=== PATIENT | female | born 1955 | race Caucasian/White ===

== ENCOUNTER 2019-01-26 21:16 | Observation (INO) | payer OTHER ==
[2019-01-26] MEDS ORDERED: NITROGLYCERIN OINT 1 INCH/GM PACKET TOPICAL STA (21:20)
--- NOTE | 2019-01-26 21:23 | ED ---
Chest Pain HPI - General Stated Complaint: Chest Pain Time Seen by Provider: 01/26/19 21:16 Source: patient, EMS, RN notes reviewed Mode of arrival: EMS - History of Present Illness Initial Comments: This is a 63-year-old female history of depression but no prior history of heart or lung disease however she is a smoker who had the onset about 45 minutes prior to arrival of retrosternal chest pain. She states it was 10/10 severity dull achy-type pain nonradiating. The patient was given aspirin nitroglycerin and Zofran due to nausea. She also states she was short of breath he does state the pain is now about 6/10 at did get better after the medication was given. No other modifying factors the 12-lead cement in by paramedicsno definite EKG changes. MD Complaint: chest pain - Related Data Allergies Allergy/AdvReac Type Severity Reaction Status Date / Time acetaminophen [From Vicodin] AdvReac Nausea Verified 01/26/19 21:40 hydrocodone [From Vicodin] AdvReac Nausea Verified 01/26/19 21:40 Review of Systems ROS Statement: Those systems with pertinent positive or pertinent negative responses have been documented in the HPI. ROS Other: All systems not noted in ROS Statement are negative. EKG Findings - EKG Results: EKG: interpreted by CHRISTINA, sinus rhythm (Sinus rhythm rate is 76. Interval 180 QRS duration 94 QT since QTC 424/477 left exodeviation pulmonary disease pattern incomplete right bundle-branch block and minimal voltage criteria for LVH and nonspecific T-wave configuration) General Exam - General Exam Comments Initial Comments: Is a well-developed well-nourished awake alert oriented 3 female General appearance: alert, in no apparent distress Head exam: Present: atraumatic, normocephalic, normal inspection Eye exam: Present: normal appearance, PERRL, EOMI. Absent: scleral icterus, conjunctival injection, periorbital swelling ENT exam: Present: normal exam, mucous membranes moist Neck exam: Present: normal inspection, full ROM, other. Absent: tenderness, meningismus, lymphadenopathy Respiratory exam: Present: normal lung sounds bilaterally. Absent: respiratory distress, wheezes, rales, rhonchi, stridor, chest wall tenderness Cardiovascular Exam: Present: regular rate, normal rhythm, normal heart sounds. Absent: systolic murmur, diastolic murmur, rubs, gallop, clicks GI/Abdominal exam: Present: soft, normal bowel sounds. Absent: distended, tenderness, guarding, rebound, rigid Extremities exam: Present: normal inspection, full ROM, normal capillary refill. Absent: tenderness, pedal edema, joint swelling, calf tenderness Back exam: Present: normal inspection Neurological exam: Present: alert, oriented X3, CN II-XII intact Psychiatric exam: Present: normal affect, normal mood Skin exam: Present: warm, dry, intact, normal color. Absent: rash Course Vital Signs 01/26/19 01/26/19 21:18 22:47 Temperature 97.6 F 98.2 F Pulse Rate 80 81 Respiratory 18 18 Rate Blood Pressure 137/72 138/76 O2 Sat by Pulse 96 97 Oximetry - Reevaluation(s) Reevaluation #1: 01/26/19 23:12 She did get more relief after nitro paste was instituted. Procedures - Smoking Cessation Time Spent Discussing Smoking Cessation w/Patient (Minutes): 3 Patient Acknowledges Need for Cessation: Yes Chest Pain MDM - MDM Did review the imaging no acute findings. Patient did get resolution of her pain after the medications were instituted. The presentation is consistent with unstable angina new-onset she will be admitted with cardiology consultation. Case was discussed with Dr. Stanton patient smokes about one pack is here yesterday. She does not believe she will go through withdrawals. She was advised she could request a nicotine patch. Critical Care Time Critical Care Time: Yes Critical Care Time: 31 minutes of critical care time includes initial presentation with history physical labs x-rays several reevaluation the patient response to therapy discuss with the main physician admission orders documentation the above this also did include discussion with the EMS crew brought the patient. Disposition Clinical Impression: Unstable angina pectoris, Chest pain, Smoker Disposition: ADMITTED IP TO THIS [facility] Condition: Fair Referrals: None,Stated [Primary Care Provider] - 1-2 days
[2019-01-26 21:47] LABS: Basophils # (A) 0.1 k/uL (0-0.2); Basophils % (A) 1 %; Eosinophils # (A) 0.2 k/uL (0-0.7); Eosinophils % (A) 2 %; HCT 39.7 % (34.0-46.0); HGB 13.1 gm/dL (11.4-16.0); Lymphocytes # (A) 1.6 k/uL (1.0-4.8); Lymphocytes % (A) 19 %; MCH 26.2 pg (25.0-35.0); MCHC 33.1 g/dL (31.0-37.0); MCV 79.1 fL (80.0-100.0); Mean Platelet Volume 6.7; Monocytes # (A) 0.4 k/uL (0-1.0); Monocytes % (A) 4 %; Neutrophils # (A) 6.3 k/uL (1.3-7.7); Neutrophils % (A) 74 %; Platelet Count 250 k/uL (150-450); RBC 5.02 m/uL (3.80-5.40); RDW 14.6 % (11.5-15.5); WBC 8.6 k/uL (3.8-10.6)
[2019-01-26 21:55] LABS: ALT 35 U/L (9-52); AST 51 U/L (14-36); African American GFR (CKD) >90 (>60 ml/min/1.73 sqM); Albumin 3.6 g/dL (3.5-5.0); Alkaline Phosphatase 130 U/L (38-126); Anion Gap 6 mmol/L; Blood Urea Nitrogen 9 mg/dL (7-17); Calcium 8.7 mg/dL (8.4-10.2); Carbon Dioxide 27 mmol/L (22-30); Chloride 108 mmol/L (98-107); Creatine Kinase 59 U/L (30-135); Glucose 119 mg/dL (74-99); Magnesium 2.1 mg/dL (1.6-2.3); Non-African American GFR(CKD) 82 (>60 ml/min/1.73 sqM); Potassium 3.3 mmol/L (3.5-5.1); Sodium 141 mmol/L (137-145); Total Bilirubin 0.4 mg/dL (0.2-1.3); Total Protein 6.1 g/dL (6.3-8.2)
[2019-01-26 22:04] LABS: D-Dimer 0.4 mg/L FEU (<0.60); INR 0.9 (<1.2); Prothrombin Time 9.6 sec (9.0-12.0)
--- NOTE | 2019-01-26 22:13 | XR ---
EXAMINATION TYPE: XR chest 2V DATE OF EXAM: 01/26/2019 COMPARISON: NONE HISTORY: Chest pain TECHNIQUE: Frontal and lateral views of the chest are obtained. FINDINGS: There is no heart failure nor confluent pneumonic infiltrate. Costophrenic angles are sohail r. Thoracic aorta shows mild atheromatous change. Bony thorax is intact. IMPRESSION: No active cardiopulmonary disease. Normal heart.
[2019-01-26] MEDS ORDERED: HEPARIN SODIUM,PORCINE 5,000 UNIT/ML 1 ML VIAL IV ONE (23:16)
[2019-01-26] MEDS ORDERED: NITROGLYCERIN SL TABS 0.4 MG TAB SUBLINGUAL PRN (23:16)
[2019-01-26] MEDS ORDERED: HEPARIN SOD,PORK IN 0.45% NACL 25,000 UNIT in 0.45% NACL 1 250ML.BAG IV SCH (23:30)
[2019-01-26] MEDS: SODIUM CHLORIDE 0.9% 1,000 ML IV SCH (23:32)
[2019-01-27] MEDS: NITROGLYCERIN OINT 1 INCH/GM PACKET TOPICAL SCH ×4 (01:41→21:17)
[2019-01-27] MEDS ORDERED: ALPRAZolam 0.25 MG TAB PO PRN (01:48)
[2019-01-27] MEDS ORDERED: POTASSIUM CHLORIDE ER 20 MEQ TAB.ER PO STA (02:00)
--- NOTE | 2019-01-27 02:00 | P.HPIM ---
History of Present Illness H&P Date: 01/27/19 Chief Complaint: chest pain 63 year old female with nosignificant past medical history except for depression patient comes in today via EMS, due to sudden onset chest pain, that started after dinner . patient was doing ok initially after dinner, and went back home started making cookies. when suddenly felt central chst pain 10/10 in severity non radiating, described as dull achy pain, associated with nausea but no vomiting , and associated with SOB, palpitation, lightheadedness, and sweating, .. she rested with no improvement , she takes no medications at home. after 20 min of no improvement , she called 911 and came to the hospital . she reports that she in general is not active, and never felt chest pain like this before. she lives in an appartment on 2nd floor and climbs 18 step to get there , denies any exertional dyspnea, but she does feel tired when she climb those steps . in the ED, EKG showed no acute ST changes, labs unremarkable , vital signs stabl e. but patient only risk factor is smoking. admitetd to rule out ACS Review of Systems Pertinent positives as noted in HPI. All other systems were reviewed and are neg ative Past Medical History Past Medical History: Diabetes Mellitus, GERD/Reflux Additional Past Medical History / Comment(s): Patient states that she has been told by a Doctor that she has DMII but started taking metformin and stopped due to side effects. History of Any Multi-Drug Resistant Organisms: None Reported Past Surgical History: No Surgical Hx Reported Past Psychological History: Depression Smoking Status: Current every day smoker Past Alcohol Use History: None Reported Past Drug Use History: None Reported Medications and Allergies Home Medications Medication Instructions Recorded Confirmed Type Omeprazole 20 mg PO DAILY 01/26/19 01/26/19 History PARoxetine [Paxil] 20 mg PO HS 01/26/19 01/26/19 History Allergies Allergy/AdvReac Type Severity Reaction Status Date / Time acetaminophen [From Vicodin] AdvReac Nausea Verified 01/26/19 23:46 hydrocodone [From Vicodin] AdvReac Nausea Verified 01/26/19 23:46 Physical Exam Vitals: Vital Signs Temp Pulse Pulse Resp BP BP Pulse Ox 01/27/19 00:00 97.3 F L 94 18 149/83 95 01/26/19 22:47 98.2 F 81 18 138/76 97 01/26/19 21:18 97.6 F 80 18 137/72 96 Intake and Output 01/26/19 01/26/19 01/27/19 14:59 22:59 06:59 Other: Weight 90.718 kg 90.718 kg Constitutional: No acute distress, conversant, pleasant Eyes: Anicteric sclerae, moist conjunctiva, no lid-lag Pupils equal round reactive to light ENMT: NC/AT Oropharynx clear, no erythema, exudates Neck: Supple, FROM, no masses, or JVD No carotid bruits No thyromegaly Lungs: Clear to auscultation Clear to percussion Normal respiratory effort, no accessory muscle use Cardiovascular: Heart regular in rate and rhythm, No murmurs, gallops, or rubs No peripheral edema Abdominal: Soft Nontender, no guarding, rebound or rigidity Abdomen moving with respiration Normoactive bowel sounds No hepatomegaly, No splenomegaly No palpable mass No abdominal wall hernia noted Skin: Normal temperature, tone, texture, turgor No induration No subcutaneous nodules No rash, lesions No ulcers Extremities: No digital cyanosis No clubbing Pedal pulses intact and symmetrical Radial pulses intact and symmetrical No calf tenderness Psychiatric: Alert and oriented to person, place and time Appropriate affect fair judgement Neuro Muscles Strength 5/5 in all 4 extremities Sensation to light touch grossly present throughout Cranial nerves II-XII grossly intact No focal sensory deficits Lymphatics: no palpable cervical or supraclavicular , or inguinal lymph nodes Results CBC & Chem 7: 01/26/19 21:33 01/26/19 21:33 Labs: Abnormal Lab Results - Last 24 Hours (Table) 01/26/19 01/26/19 Range/Units 21:33 21:33 MCV 79.1 L (80.0-100.0) fL Potassium 3.3 L (3.5-5.1) mmol/L Chloride 108 H (98-107) mmol/L Glucose 119 H (74-99) mg/dL AST 51 H (14-36) U/L Alkaline Phosphatase 130 H (38-126) U/L Total Protein 6.1 L (6.3-8.2) g/dL Thrombosis Risk Factor Assmnt - Choose All That Apply Each Factor Represents 1 point: Obesity (BMI >25) Other Risk Factors: (smoker) Other congenital or acquired thrombophilia - If yes, enter type in comment: No Thrombosis Risk Factor Assessment Total Risk Factor Score: 1 Thrombosis Risk Factor Assessment Level: Low Risk Assessment and Plan Assessment: 63-year-old female with no significant past medical history has history of depression. Presented with atypical chest pain admitted under observation with anticipated length of stay less than two midnights to rule out acute coronary syndrome Plan: Atypical chest pain rule out acute coronary syndrome Heparin drip Aspirin Nitropaste Monitor vital signs Trend cardiac enzymes EKG showed no ST changes Cardio to consult automobile engine assembler mild hypokalemia replace PO Smoking Counseled to quit smoking Nicotine replacement therapy patient is full code Discussed with: Patient, ER, RN Anticipated length of stay less than [address]: Home A total of 60 minutes was spent on the care of this complex patient more than 50% of the time was spent in counseling and care coordination.
[2019-01-27] MEDS: MELATONIN 3 MG TABLET PO SCH ×2 (02:05→21:48)
[2019-01-27 06:45] LABS: Cholesterol 169 mg/dL (<200); HDL Cholesterol 41 mg/dL (40-60); LDL Cholesterol,Calculated 95 mg/dL (0-99); Triglycerides 165 mg/dL (<150)
[2019-01-27] MEDS ORDERED: CAFFEINE CITRATE 60 MG/3 ML VIAL IV PRN (08:16)
[2019-01-27] MEDS ORDERED: REGADENOSON 0.4 MG/5 ML SYRINGE IV ONE (08:16)
[2019-01-27] MEDS ORDERED: AMINOPHYLLINE 500 MG/20 ML VIAL IV PRN (08:16)
[2019-01-27] MEDS ORDERED: DIPYRIDAMOLE 51.7 MG in SODIUM CHLORIDE 0.9% 50 ML IV ONE (08:30)
[2019-01-27] MEDS ORDERED: SODIUM CHLORIDE 0.9% 1,000 ML in EMPTY BAG 1 BAG IV ONE (09:07)
[2019-01-27] MEDS ORDERED: ATORVASTATIN 80 MG TAB PO STA (09:07)
[2019-01-27] MEDS: ASPIRIN 325 MG TAB PO SCH (10:06)
--- NOTE | 2019-01-27 11:03 | ECHOF ---
Referral Reason:chest pain MEASUREMENTS -------- HEIGHT: 165.1 cm WEIGHT: 90.7 kg BP: RVIDd: 3.4 cm (< 3.3) IVSd: 1.1 cm (0.6 - 1.1) LVIDd: 4.5 cm (3.9 - 5.3) LVPWd: 1.3 cm (0.6 - 1.1) IVSs: 1.4 cm LVIDs: 3.3 cm LVPWs: 1.9 cm LA Diam: 4.1 cm (2.7 - 3.8) LAESV Index (A-L): 24.38 ml/m Ao Diam: 2.5 cm (2.0 - 3.7) AV Cusp: 1.7 cm (1.5 - 2.6) LA Diam: 4.2 cm (2.7 - 3.8) MV EXCURSION: 16.659 mm (> 18.000) MV EF SLOPE: 97 mm/s (70 - 150) EPSS: 0.6 cm MV E Antonio: 0.52 m/s MV DecT: 182 ms MV A Antonio: 0.61 m/s MV E/A Ratio: 0.85 RAP: 5.00 mmHg RVSP: 18.11 mmHg FINDINGS -------- Sinus rhythm. This was a technically good study. LV size, wall thickness and systolic function are normal, with an EF greater than 55%. The left laura tricular size is normal. The diastolic filling pattern is normal for the age of the patient 6.44. The right ventricle is normal in size. The left atrial size is normal. The right atrial size is normal. The aortic valve is trileaflet, and appears structurally normal. No aortic stenosis or regurgitation. Mild mitral regurgitation is present. Mild tricuspid regurgitation present. Right ventricular systolic pressure is normal at < 35 mmHg. There is no evidence of pulmonary hypertension. There is no pulmonic regurgitation present. The aortic root size is normal. There is no pericardial effusion. CONCLUSIONS -------- 1. Sinus rhythm. 2. This was a technically good study. 3. LV size, wall thickness and systolic function are normal, with an EF greater than 55%. 4. The left ventricular size is normal. 5. The diastolic filling pattern is normal for the age of the patient 6.44 6. The right ventricle is normal in size. 7. The left atrial size is normal. 8. The right atrial size is normal. 9. The aortic valve is trileaflet, and appears structurally normal. No aortic stenosis or regurgitati on. 10. Mild mitral regurgitation is present. 11. Mild tricuspid regurgitation present. 12. Right ventricular systolic pressure is normal at < 35 mmHg. 13. There is no evidence of pulmonary hypertension. 14. There is no pulmonic regurgitation present. 15. The aortic root size is normal. 16. There is no pericardial effusion. BUILDING MAINTENANCE TECHNICIAN: Alannah Blount RDCS
[2019-01-27] MEDS ORDERED: HEPARIN SODIUM,PORCINE 5,000 UNIT/ML 1 ML VIAL IV PRN (11:40)
[2019-01-27] MEDS ORDERED: HEPARIN SOD,PORK IN 0.45% NACL 25,000 UNIT in 0.45% NACL 1 250ML.BAG IV SCH (11:45)
--- NOTE | 2019-01-27 16:10 | CONS ---
ANDREW Palomo is a 63-year-old lady with a history of smoking and family history of premature coronary artery disease with coronary risk factors who presented to hospital complaining of chest pain. She describes it as a precordial chest pressure that came on suddenly, moderate intensity, that radiated to her back. She came to the ER, where she was treated with aspirin and nitroglycerin, following which she became free of chest pain. She has not had any further episodes of chest pain. EKG shows sinus rhythm with left axis deviation. She had 3 sets of cardiac enzymes that are all within normal limits. Given her symptomatology and risk factors, I talked to her about her treatment options, including undergoing cardiac catheterization versus stress testing; the patient understanding risks, benefits, wishes to go through cardiac cath. We will do this as soon as it is feasible. The laboratory animal facility supervisor is busy today; has had 2 acute MIs. If we cannot do it today, we will do it tomorrow morning. Past medical history is negative for hypertension, diabetes, dyslipidemia. MEDICATIONS: Medications include Paxil and omeprazole. ALLERGIES: VICODIN. FAMILY HISTORY: Significant for premature coronary artery disease. SOCIAL HISTORY: Negative for smoking. There is no history of EtOH abuse or drug abuse. REVIEW OF SYSTEMS: HEENT is unremarkable. CARDIAC: As described above. RESPIRATORY: As described above. GI: Negative. GENITOURINARY: Negative. ALLERGY: Negative. IMMUNOLOGY: Negative. SKIN: Negative. MUSCULOSKELETAL: Significant for arthritis. PSYCHOSOCIAL: Negative. ENDOCRINE: DERMATOLOGY: Negative. HEMATOLOGICAL: Negative. CONSTITUTIONAL: Unremarkable. NEUROLOGICAL: Negative. ONCOLOGICAL: Negative. Rest of the system review is not relevant. PHYSICAL EXAMINATION: Comfortable at rest. Vital signs are stable. There is no jugular venous distention. Carotid upstroke is normal. There is no bruit. Chest exam reveals good air entry bilaterally. Heart exam reveals first and second heart sounds. No gallop. No murmur. No rub. Abdomen is soft, nontender. Examination of extremities did not reveal any edema. Peripheral pulses are felt. ASSESSMENT: Unstable angina. PLAN: Patient will continue with aspirin, heparin and nitrates that she is on. We will add a small dose of a beta marcus, start her on statins after the cardiac catheterization if necessary. Patient will undergo cardiac catheterization. MMODL / IJN: [id number] /
[2019-01-27] MEDS: PANTOPRAZOLE 40 MG TABLET PO SCH (17:17)
--- NOTE | 2019-01-27 17:24 | P.PN ---
Subjective Progress Note Date: 01/27/19 (delayed charting seen at 1500) Principal diagnosis: Chest pain Patient is a 63-year-old female with a past medical history of prior diabetes mellitus type 2 not currently taking medications, GERD, and obesity who presented to the emergency department with complaints of chest pain. In the emergency department she underwent an extensive evaluation. On arrival her vit al signs were within normal limits. Laboratory analysis showed a potassium of 3.3, glucose 119, alkaline phosphatase 1:30, AST 51, troponin was negative 3. EKG did not show any acute ischemic changes. She was placed on a heparin drip, nitro patch, and had been given aspirin. She is admitted for further monitoring. Cholesterol levels came back within normal limits. She was seen by cardiology and underwent echocardiogram which showed an ejection fraction of 55% with normal diastolic filling. They do marcus was added. Plan is to start her on statin after cardiac catheterization if necessary. Plan is for cardiac cath 01/28. Patient seen and examined at bedside. She is currently chest pain-free, no shortness of breath, no nausea, no vomiting, or diarrhea. She has no insurance. She states she has meet with [employer] already. Objective - Vital Signs Vital signs: Vital Signs Temp 98.2 F 01/27/19 16:00 Pulse 58 L 01/27/19 16:00 Resp 18 01/27/19 16:50 BP 130/83 01/27/19 16:00 Pulse Ox 96 01/27/19 16:00 Intake & Output 01/26/19 01/27/19 01/27/19 18:59 06:59 18:59 Weight 90.718 kg Other: Voiding Method Toilet # Voids 1 1 - Exam General: non toxic, no distress, appears at stated age Derm: 1 CM nevi with area of discoloriation on right shoulder blade warm, dry Head: atraumatic, normocephalic, symmetric Eyes: EOMI, no lid lag, anicteric sclera Mouth: no lip lesion, mucus membranes moist Cardiovascular: S1S2 reg, no murmur, positive posterior tibial pulse bilateral, Lungs: CTA bilateral, no rhonchi, no rales , no accessory muscle use Abdominal: soft, nontender to palpation, no guarding, no appreciable organomegaly Ext: no gross muscle atrophy, no edema, no contractures Neuro: CN II-XI grossly intact, no focal neuro deficits Psych: Alert, oriented, appropriate affect - Labs CBC & Chem 7: 01/26/19 21:33 01/26/19 21:33 Labs: Abnormal Lab Results - Last 24 Hours (Table) 01/26/19 01/26/19 01/27/19 Range/Units 21:33 21:33 05:55 MCV 79.1 L (80.0-100.0) fL APTT (22.0-30.0) sec Potassium 3.3 L (3.5-5.1) mmol/L Chloride 108 H (98-107) mmol/L Glucose 119 H (74-99) mg/dL AST 51 H (14-36) U/L Alkaline Phosphatase 130 H (38-126) U/L Total Protein 6.1 L (6.3-8.2) g/dL Triglycerides 165 H (<150) mg/dL 01/27/19 Range/Units 05:55 MCV (80.0-100.0) fL APTT 38.5 H (22.0-30.0) sec Potassium (3.5-5.1) mmol/L Chloride (98-107) mmol/L Glucose (74-99) mg/dL AST (14-36) U/L Alkaline Phosphatase (38-126) U/L Total Protein (6.3-8.2) g/dL Triglycerides (<150) mg/dL Assessment and Plan Assessment: Chest pain -Troponins negative 3 -Cardiology recommendations appreciated. On his for cardiac catheterization in the a.m. Continue with aspirin drip, aspirin, nitro paste -Repeat EKG if patient develops chest pain again GERD - resume PPI DOubt DM - BS controlled on admission - will recheck with AM blood work Hypokalemia - replaced - recheck in AM Obesity with BMI 32.3 -Weight loss Abnormal nevi right back -Asked her to have this evaluated as an outpatient for possible biopsy. [facility] follow [facility] for under insured. DVT prophylaxis:SCDs Discussed with: Patient, nursing Anticipated discharge: in AM Anticipated discharge place: home A total of 25 minutes was spent on the care of this complex patient more than 50% of the time was spent in counseling and care coordination.
[2019-01-27] MEDS: SODIUM CHLORIDE 0.9% 1,000 ML IV SCH (23:41)
[2019-01-28] MEDS: NITROGLYCERIN OINT 1 INCH/GM PACKET TOPICAL SCH ×3 (01:17→12:10)
[2019-01-28] MEDS: PANTOPRAZOLE 40 MG TABLET PO SCH (05:40)
[2019-01-28] MEDS: ASPIRIN 325 MG TAB PO SCH (05:40)
[2019-01-28 07:53] LABS: Basophils % (A) 1 %; Eosinophils # (A) 0.2 k/uL (0-0.7); Eosinophils % (A) 4 %; HCT 35.8 % (34.0-46.0); HGB 11.6 gm/dL (11.4-16.0); Lymphocytes # (A) 1.4 k/uL (1.0-4.8); Lymphocytes % (A) 32 %; MCH 25.8 pg (25.0-35.0); MCHC 32.2 g/dL (31.0-37.0); Mean Platelet Volume 6.8; Monocytes # (A) 0.3 k/uL (0-1.0); Monocytes % (A) 6 %; Neutrophils # (A) 2.4 k/uL (1.3-7.7); Neutrophils % (A) 54 %; Platelet Count 198 k/uL (150-450); RBC 4.48 m/uL (3.80-5.40); RDW 14.8 % (11.5-15.5); WBC 4.5 k/uL (3.8-10.6)
[2019-01-28 08:04] VITALS: RESP 18
[2019-01-28 08:20] LABS: Calcium 8.4 mg/dL (8.4-10.2); Potassium 4.3 mmol/L (3.5-5.1); Total Bilirubin 0.3 mg/dL (0.2-1.3); Total Protein 5.3 g/dL (6.3-8.2)
[2019-01-28] MEDS ORDERED: IV FLUID CONTINUATION 900 ML IV ONE (08:52)
[2019-01-28] MEDS ORDERED: MIDAZOLAM 2 MG/2 ML VIAL IVP ONE (09:06)
[2019-01-28] MEDS ORDERED: fentaNYL (PF) 50 MCG/ML 2 ML AMP IVP ONE (09:07)
[2019-01-28] MEDS ORDERED: LIDOCAINE 1% INJ 10MG/ML (20 ML MDV) SQ ONE (09:11)
[2019-01-28] MEDS ORDERED: IOPAMIDOL-370 125ML BTL INJ ONE (09:28)
--- NOTE | 2019-01-28 13:42 | CC ---
CARDIAC CATHETERIZATION REPORT INDICATIONS: Unstable angina. PROCEDURE NOTE: After obtaining informed consent, left heart catheterization and coronary angiogram were performed via the right femoral artery using standard Mike catheters. The patient tolerated the procedure well without any obvious immediate complications. A femoral angiogram was performed and Angio-Seal was deployed for hemostasis. Patient received moderate conscious sedation. Total sedation time was 14 minutes. FINDINGS: HEMODYNAMICS: Left ventricular end-diastolic pressure is 12-14 mm. There is no significant gradient across the aortic valve. LEFT VENTRICULOGRAM: Left ventriculogram is not performed. ANGIOGRAPHIC DATA: LEFT MAIN CORONARY ARTERY: Left main coronary artery is a normal-sized vessel and is free of stenosis. Divides into left anterior descending coronary artery and circumflex coronary artery. LEFT ANTERIOR DESCENDING CORONARY ARTERY: LAD shows mild nonobstructive coronary artery disease and calcified vessels. CIRCUMFLEX CORONARY ARTERY: Circumflex coronary artery is a nondominant vessel and is free of significant stenosis. RIGHT CORONARY ARTERY: Right coronary artery is a dominant vessel and is free of significant stenosis. CONCLUSIONS: Mild nonobstructive coronary artery disease. PLAN: Patient's management is going to be in the form of risk factor modification, optimal medical therapy. MMODL / IJN: [id number] /
--- NOTE | 2019-01-28 14:34 | P.DS ---
Providers Date of admission: 01/26/19 23:16 Expected date of discharge: 01/28/19 Attending physician: Dipak Cole MD Consults: 01/26/19 23:16 Consult Physician Urgent Consulting Provider: Danny Boudreaux Consult Reason/Comments: Chest pain Do you want consulting provider notified?: Yes, Notify in am Primary care physician: Stated None Hospital Course: Discharge Diagnosis: Chest pain due to GERD, clean cath Obesity hypokalemia Hospital Course: Patient is a 63-year-old female with a past medical history of prior diabetes mellitus type 2 not currently taking medications, GERD, and obesity who presented to the emergency department with complaints of chest pain. In the emergency department she underwent an extensive evaluation. On arrival her vital signs were within normal limits. Laboratory analysis showed a potassium of 3.3, glucose 119, alkaline phosphatase 130, AST 51, troponin was negative 3. EKG did not show any acute ischemic changes. She was placed on a heparin drip, nitro patch, and had been given aspirin. She is admitted for further monitoring. Cholesterol levels came back within normal limits. She was seen by cardiology and underwent echocardiogram which showed an ejection fraction of 55% with normal diastolic filling. Repeat alkaline phosphatase were normal. She underwent cardiac catheterization on 01/28 which showed clean coronaries. She is determined stable for discharge. We increased her omeprazole to 40 mg once daily as appears her chest pain may be related to acid reflux. I've asked her to call the [facility] to see she can establish there she has no insurance. She'll also follow-up with Dr. Cabral in 1 week for recheck of her groin. Patient seen and examined at bedside.No chest pain, SOB, Nausea, vomiting, or diarrhea. Agree that chest pain may be due to GERD Vital signs reviewed and stable. General: non toxic, no distress, appears at stated age Derm: warm, dry Head: atraumatic, normocephalic, symmetric Eyes: EOMI, no lid lag, anicteric sclera Mouth: no lip lesion, mucus membranes moist Cardiovascular: S1S2 reg, no murmur, positive posterior tibial pulse bilateral, Lungs: CTA bilateral, no rhonchi, no rales , no accessory muscle use Abdominal: soft, nontender to palpation, no guarding, no appreciable organomegaly Ext: no gross muscle atrophy, no edema, no contractures Neuro: CN II-XI grossly intact, no focal neuro deficits Psych: Alert, oriented, appropriate affect A total of 25 minutes of time were spent preparing this complex discharge summary . Patient Condition at Discharge: Stable Plan - Discharge Summary Discharge Rx Participant: No New Discharge Prescriptions: New Omeprazole 40 mg PO DAILY #30 capsule. Continue PARoxetine [Paxil] 20 mg PO HS Discontinued Omeprazole 20 mg PO DAILY Discharge Medication List PARoxetine [Paxil] 20 mg PO HS 01/26/19 [History] Omeprazole 40 mg PO DAILY #30 capsule. 01/28/19 [Rx] Follow up Appointment(s)/Referral(s): Sanchez Bolton MD [STAFF PHYSICIAN] - 02/03/19 8:45 am [facility] [NON-STAFF] - 1 Week Activity/Diet/Wound Care/Special Instructions: Activity: as tolerated Diet: low acid Discharge Disposition: HOME SELF-CARE
[2019-01-28 15:39] VITALS: BP 131/85; PULSE 66; TEMP 98.1
== END 2019-01-28 16:50 | disposition home or self-care (01) ==
LOC: EC 21:16 → 1SOBS 23:16
PROVIDERS: ADMIT Internal Medicine; ATTEND Internal Medicine
DX: K21.9 Gastro-esophageal reflux disease without esophagitis (principal); E87.6 Hypokalemia; E66.9 Obesity, unspecified; I45.10 Unspecified right bundle-branch block; I08.1 Rheumatic disorders of both mitral and tricuspid valves; F32.9 Major depressive disorder, single episode, unspecified; F17.210 Nicotine dependence, cigarettes, uncomplicated; E11.9 Type 2 diabetes mellitus without complications; E78.5 Hyperlipidemia, unspecified; M19.90 Unspecified osteoarthritis, unspecified site; Z68.32 Body mass index [BMI] 32.0-32.9, adult; Z79.899 Other long term (current) drug therapy; Z88.5 Allergy status to narcotic agent; Z82.49 Family history of ischemic heart disease and other diseases of the circulatory system
CPT/HCPCS: 93005 ×2; 96366 ×2; 96376 ×2; 96365; 99291; 36415; 93306; 93458; 85379; 80061; 80053 ×2; 82550; 83690; 83735; 84484 ×2; 85025 ×2; 85610; 85730 ×3; 71046; G0378 ×3; C1769 ×2; C1760; C1894; J2250; J1644 ×4; J2001; J3010; Q9967

== ENCOUNTER 2020-11-06 11:43 | Emergency (ER) | payer OTHER ==
[2020-11-06 12:19] VITALS: RESP 20; TEMP 98.1
--- NOTE | 2020-11-06 13:34 | XR ---
EXAMINATION TYPE: XR chest 2V DATE OF EXAM: 11/06/2020 COMPARISON: NONE TECHNIQUE: PA and lateral views submitted. HISTORY: Cough FINDINGS: The lungs are clear and there is no pneumothorax, pleural effusion, or focal pneumonia. Heart size normal. No overt failure. Limited inspiration. Degenerative changes of the spine. IMPRESSION: 1. No acute process.
--- NOTE | 2020-11-06 14:07 | ED ---
URI HPI - General Chief Complaint: Upper Respiratory Infection Stated Complaint: sore throat, cough Time Seen by Provider: 11/06/20 13:22 Source: patient Mode of arrival: ambulatory Limitations: no limitations - History of Present Illness Initial Comments: He is a 65-year-old female presenting to emergency Department with complaints of 2 days of sore throat, congestion and mild cough. She denies any fevers. She denies any chest pain or shortness of breath. She denies any abdominal pain, no nausea or vomiting. She denies history of asthma or COPD, she is in every day smoker. She has no other complaints at this time. Vital signs are stable upon arrival. - Related Data Home Medications Medication Instructions Recorded Confirmed PARoxetine [Paxil] 20 mg PO HS 01/26/19 11/06/20 Omeprazole Magnesium [PriLOSEC OTC] 20 mg PO DAILY 11/06/20 11/06/20 Previous Rx's Medication Instructions Recorded predniSONE [Deltasone] 20 mg PO DAILY 5 Days #5 tab 11/06/20 Allergies Allergy/AdvReac Type Severity Reaction Status Date / Time hydrocodone [From Vicodin] AdvReac Nausea Verified 11/06/20 13:57 Review of Systems ROS Statement: Those systems with pertinent positive or pertinent negative responses have been documented in the HPI. ROS Other: All systems not noted in ROS Statement are negative. Past Medical History Past Medical History: Diabetes Mellitus, GERD/Reflux Additional Past Medical History / Comment(s): Patient states that she has been told by a Doctor that she has DMII but started taking metformin and stopped due to side effects. History of Any Multi-Drug Resistant Organisms: None Reported Past Surgical History: No Surgical Hx Reported Past Psychological History: Depression Smoking Status: Never smoker Past Alcohol Use History: None Reported Past Drug Use History: None Reported General Exam - General Exam Comments Initial Comments: GENERAL: Patient is well-developed and well-nourished. Patient is nontoxic and in no acute distress. HEAD: Atraumatic, normocephalic. EYES: Pupils equal round and reactive to light, extraocular movements intact, sclera anicteric, conjunctiva are normal. Eyelids were unremarkable. ENT: Nares patent, oropharynx clear without exudates. Moist mucous membranes. NECK: Normal range of motion, supple without lymphadenopathy or JVD. LUNGS: Unlabored respirations. Breath sounds clear to auscultation bilaterally and equal. No wheezes rales or rhonchi. HEART: Regular rate and rhythm without murmurs, rubs or gallops. ABDOMEN: Soft, nontender, normoactive bowel sounds. No guarding, no rebound. No masses appreciated. : Deferred MUSCULOSKELETAL: Normal extremities with adequate strength and normal range of motion, no pitting or edema. No clubbing or cyanosis. NEUROLOGICAL: Patient is alert and oriented x 3. SKIN: Warm, Dry, normal turgor, no rashes or lesions noted. Limitations: no limitations Course Vital Signs 11/06/20 12:15 Temperature 98.1 F Pulse Rate 69 Respiratory 20 Rate Blood Pressure 138/83 O2 Sat by Pulse 99 Oximetry Medical Decision Making - Medical Decision Making Patient is a 65-year-old female presenting with a sore throat, cough and congestion over the past 2 days. Her vitals are stable, her exam is unremarkable. Rapid Covid is negative, chest x-ray is normal. Discussed with patient this is most likely viral in nature. I will give her a small course of steroids to help improve cough. She can follow-up with her family doctor. She is agreeable to this plan of care and is stable for discharge. - Lab Data Lab Results 11/06/20 Range/Units 12:18 Coronavirus (PCR) Not Detected (Not Detectd) Disposition Clinical Impression: Viral respiratory illness Disposition: HOME SELF-CARE Condition: Stable Instructions (If sedation given, give patient instructions): Upper Respiratory Infection (ED) Additional Instructions: Please return to the Emergency Department if symptoms worsen or any other concerns. Trial of steroids for cough. Recommended Tylenol or Motrin for any discomfort, [id number] medications to treat your symptoms. Please follow up with your primary care. Prescriptions: predniSONE [Deltasone] 20 mg PO DAILY 5 Days #5 tab Is patient prescribed a controlled substance at d/c from ED?: No Referrals: None,Stated [Primary Care Provider] - 1-2 days Time of Disposition: 14:06
[2020-11-06 14:17] VITALS: BP 135/84; PULSE 68
== END 2020-11-06 14:17 | disposition home or self-care (01) ==
LOC: EC 11:43
DX: J06.9 Acute upper respiratory infection, unspecified (principal); E11.9 Type 2 diabetes mellitus without complications; K21.9 Gastro-esophageal reflux disease without esophagitis; Z20.822 Contact with and (suspected) exposure to COVID-19; Z88.5 Allergy status to narcotic agent
CPT/HCPCS: 71046; 87635; 99283

== ENCOUNTER → 2022-09-05 | Outpatient (CLI) | payer MEDICARE ==
--- NOTE | 2022-10-02 06:59 | EM ---
EVENT MONITOR All available strips in the event monitor were reviewed. The patient has predominant sinus rhythm with isolated PACs and PVCs. On multiple occasions; she had symptoms of fluttering feeling and irregular heartbeat sensation, and all of these correlated with a sinus rhythm. These recordings do not suggest any significant arrhythmia and there was no correlation of any arrhythmia with patient's perception of irregular heartbeat. FINAL IMPRESSION: Unremarkable 21-day event monitor. MMODL / IJN: [id number] /
== END | disposition home or self-care (01) ==
LOC: RADECHMAIN 07:56
PROVIDERS: ATTEND Family Medicine
DX: R00.2 Palpitations (principal)
CPT/HCPCS: 93270

== ENCOUNTER → 2022-12-26 | Outpatient (CLI) | payer MEDICARE ==
--- NOTE | 2022-12-26 19:46 | XR ---
EXAMINATION TYPE: XR shoulder complete LT DATE OF EXAM: 12/26/2022 4:48 PM CLINICAL INDICATION:Female, 67 years old with history of M25.512 PAIN IN LEFT SHOULDER; PH[facility] COMPARISON: None TECHNIQUE: XR shoulder complete LT; shoulder was examined in AP, internally rotated and scapular Y p rojections. FINDINGS: No evidence of acute osseous pathology, joint dislocation, or soft tissue swelling. The remaining por tions of the visualized chest are unremarkable. Mild degeneration changes with hypertrophy of the dis una clavicle. IMPRESSION: 1. No acute osseous pathology. 2. Mild AC joint degeneration.
== END | disposition home or self-care (01) ==
LOC: RADXRMAIN 16:31
PROVIDERS: ATTEND Family Medicine
DX: M19.012 Primary osteoarthritis, left shoulder (principal)

== ENCOUNTER → 2023-04-01 | Outpatient (CLI) | payer MEDICARE ==
--- NOTE | 2023-04-01 11:41 | MR ---
EXAMINATION TYPE: MR shoulder LT wo con DATE OF EXAM: 04/01/2023 COMPARISON: X-ray 12/26/2022 HISTORY: Lt shoulder pain TECHNIQUE: Multiplanar, multisequence imaging of the left shoulder is performed without contrast. FINDINGS: Rotator Cuff: Supraspinatus tendon: There is a partial through thickness tear measuring 1 x 1.4 cm of the distal orozco praspinatus tendon extending to the insertion. Infraspinatus tendon: There is tendinopathy involving the anterior fibers of the insertion of the inf raspinatus tendon. Subscapularis tendon: Intact. Acromioclavicular Joint: Mild hypertrophic change of the AC joint with no impingement. There is a sma ll amount of fluid in the subacromial bursa. Glenohumeral Joint: There is small amount of fluid in the joint space. Mild arthropathy of the glenoh umeral joint. Glenohumeral ligaments appear intact. Labrum: The labrum appears grossly intact given limitation of non-arthrogram study. Biceps Tendon: Increased fluid surrounding the bicipital tendon compatible with bicipital tendinosis. Bone marrow signal: Cystic changes involving the humeral head appearance. IMPRESSION: 1. Partial through thickness tear supraspinatus tendon measuring approximately 1 x 1.4 cm. 2. Significant tendinopathy of the anterior fibers of the insertion of the infraspinatus tendon. 3. Mild bicipital tendinosis.
== END | disposition home or self-care (01) ==
LOC: RADMRIMAIN 10:35
PROVIDERS: ATTEND Family Medicine
DX: M75.112 Incomplete rotator cuff tear or rupture of left shoulder, not specified as traumatic (principal); M67.814 Other specified disorders of tendon, left shoulder

== ENCOUNTER → 2023-05-22 | Outpatient (CLI) | payer MEDICARE | END | disposition home or self-care (01) | LOC: RADMRIMAIN 11:25 | PROVIDERS: ATTEND Orthopaedic Surgery | DX: Z53.9 Procedure and treatment not carried out, unspecified reason (principal) ==

== ENCOUNTER → 2023-08-20 | Outpatient (CLI) | payer MEDICARE ==
--- NOTE | 2023-08-21 13:40 | CA ---
Transthoracic Echo Report Name: Stacia Mo Age: 68 Gender: F : 1955 Exam Date: 08/20/2023 13:50 Exam Location: [place] Echo Ht (in): 66 Wt (lb): 200 Ordering Physician: Teddy Ga DO Attending/Referring Phys: Teddy Ga DO [employer] Kiesha Almazan RDCS Procedure CPT: Indications: R94.31 ABNORMAL EKG Cardiac Hx: Technical Quality: Fair Contrast 1: Total Dose (mL): Contrast 2: Total Dose (mL): MEASUREMENTS (Male / Female) Normal Values 2D ECHO LV Diastolic Diameter PLAX 4.1 cm 4.2 - 5.9 / 3.9 - 5.3 cm LV Systolic Diameter PLAX 2.7 cm IVS Diastolic Thickness 1.4 cm 0.6 - 1.0 / 0.6 - 0.9 cm LVPW Diastolic Thickness 1.4 cm 0.6 - 1.0 / 0.6 - 0.9 cm LV Relative Wall Thickness 0.7 RV Internal Dim ED PLAX 3.1 cm LA Volume 44.9 cm??? 18 - 58 / 22 - 52 cm??? LA Volume Index 21.5 cm???/m??? 16 - 28 cm???/m??? M-MODE Aortic Root Diameter MM 2.5 cm LA Systolic Diameter MM 4.5 cm LA Ao Ratio MM 1.8 AV Cusp Separation MM 1.6 cm DOPPLER AV Peak Velocity 132.2 cm/s AV Peak Gradient 7.0 mmHg AV Mean Velocity 89.8 cm/s AV Mean Gradient 3.5 mmHg AV Velocity Time Integral 25.6 cm AI Peak Velocity 241.9 cm/s AI Peak Gradient 23.4 mmHg AI Pressure Half Time 626.4 ms LVOT Peak Velocity 89.7 cm/s LVOT Peak Gradient 3.2 mmHg LVOT Velocity Time Integral 17.0 cm MV Area PHT 5.4 cm??? Mitral E Point Velocity 76.5 cm/s Mitral A Point Velocity 77.3 cm/s Mitral E to A Ratio 1.0 MV Deceleration Time 141.3 ms MV E' Velocity 6.2 cm/s Mitral E to MV E' Ratio 12.3 TR Peak Velocity 209.7 cm/s TR Peak Gradient 17.6 mmHg Right Ventricular Systolic Press 22.3 mmHg FINDINGS Left Ventricle Moderately increased left ventricular wall thickness. Left ventricular cavity size normal. Normal left ventricular systolic function with no obvious regional wall motion abnormalities. Left ventricular ejection fraction is estimated at 55-60 %. Right Ventricle Normal right ventricular size and function. Right ventricular systolic pressure within normal limits. Right Atrium Normal right atrial size. Left Atrium Normal left atrial size. Mitral Valve Structurally normal mitral valve. Mild mitral regurgitation. Aortic Valve Trileaflet aortic valve. Thickened aortic valve without stenosis. Trace to mild aortic regurgitation. Tricuspid Valve Structurally normal tricuspid valve. Mild tricuspid regurgitation. Pulmonic Valve Structurally normal pulmonic valve. Trace pulmonic regurgitation. Pericardium No pericardial effusion. Aorta Normal size aortic root and proximal ascending aorta. CONCLUSIONS Left ventricular ejection fraction is estimated at 55-60 %. No obvious regional wall motion abnormality No significant chamber size abnormality No significant valvular Previewed by: Dr Víctor Cortez (Electronically Signed) Final Date: 21 August 2023 13:39
== END | disposition home or self-care (01) ==
LOC: RADECHMAIN 13:20
PROVIDERS: ATTEND Family Medicine
DX: R94.31 Abnormal electrocardiogram [ECG] [EKG] (principal)
CPT/HCPCS: 93306

== ENCOUNTER → 2023-08-21 | Outpatient (CLI) | payer MEDICARE ==
[~2023-08-21] MED LIST: REGADENOSON 0.4 MG/5 ML SYRINGE IV PRN
--- NOTE | 2023-08-21 13:39 | CA ---
Lexiscan Nuclear Stress Test Report Name: Stacia Mo Exam Date: 08/21/2023 10:00 Exam Location: [place] Stress Ht (in): 66 Wt (lb): 200 BSA: 2.00 Ordering Phys: Teddy Ga DO Referring Phys: Teddy Ga DO Technologist: Justin Casey Age: 68 Gender: F : 1955 Procedure CPT: Indications: R94.31 ABNORMAL ELECTROCARDIOGRAM [ECG] [EKG] ICD-10 Codes: Patient History: Medications: PAXIL,,,, LISINOPRIL,,,, LEVOTHYROXINE,,, Meds past 24 hrs: Pretest Chest Pain: STRESS TEST Lexiscan Protocol Exercise Duration (min:sec): 01:[address] Depressions (mm): Angina Score: Staples Score: Resting HR (bpm): 63 Peak HR (bpm): 90 Resting BP (mmHg): 153 / 80 Peak BP (mmHg): 155 / 75 MPHR: 154 Target HR: 131 % MPHR: 58 METS: 1.0 Total Dose: Peak Dose: Atropine: Double Product: 62724 BP Response: Stress Termination: INFUSION COMPLETE Stress Symptoms: NAUSEA Stress Summary: ECG ANALYSIS Resting ECG: Stress ECG: CONCLUSIONS RESTING EKG: [Normal sinus rhythm, normal EKG] , Heart rate 86 BPM Patient recieved IV infusion of Lexiscan 0.4mg and at peak infusion STRESS EKG showed: [No significant ST-T wave changes diagnostic for ischemia by ST segment analysis] ARRYTHMIAS: [No ectopic rhythms or sustained arrythmias] CONCLUSION: 1. Normal hemodynamic and clinical response to Lexiscan infusion. 2. Non-ischemic EKG response to lexiscan infusion Please refer to the nuclear imaging portion of this stress test for complete interpretation of the study. Dr Víctor Cortez (Electronically Signed) Final Date: 21 August 2023 13:38
--- NOTE | 2023-08-22 10:36 | NM ---
EXAMINATION TYPE: NM stress lexiscan cardiolite DATE OF EXAM: 08/21/2023 COMPARISON: NONE CLINICAL INDICATION: Female, 68 years old with history of R94.31 ABNORMAL ELECTROCARDIOGRAM [ECG] [EK G]; TECHNIQUE: After the intravenous administration of 10.36 mCi Tc 99m Sestamibi - Cardiolite resting S PECT images acquired 45 minutes post injection. The patient received 0.4mg Lexiscan, 25.7 mCi Tc 99m Sestamibi - Stress images obtained [address] injection FINDINGS: Review of stress and rest SPECT images demonstrates decreased perfusion along the mid anterior wall w hich is more pronounced on rest suggesting attenuation artifact. However, there is no area of reversi bility suggestive of the inferior apex on coronal images and corroborated on polar maps. Gated analys is shows normal wall motion with an estimated left ventricular ejection fraction of 67 %. TID is calc ulated at 1.02, within normal limits. IMPRESSION: Possible small area of reversibility along the inferior apex. Clinically correlate.
== END | disposition home or self-care (01) ==
LOC: RADNMMAIN 08:13
PROVIDERS: ATTEND Family Medicine
DX: R94.31 Abnormal electrocardiogram [ECG] [EKG] (principal)
CPT/HCPCS: 93017; 78452; A9500; J2785

== ENCOUNTER → 2023-09-21 | Outpatient (CLI) | payer MEDICARE ==
[2023-09-21 17:14] LABS: Basophils # (A) 0.07 X 10*3/uL (0.00-0.10); Eosinophils # (A) 0.32 X 10*3/uL (0.04-0.35); Eosinophils % (A) 4.4 %; HCT 46.1 % (37.2-46.3); HGB 14.1 g/dL (12.0-15.0); Lymphocytes % (A) 27.3 %; MCH 25.2 pg (27.0-32.0); MCHC 30.6 g/dL (32.0-37.0); MCV 82.3 FL (80.0-97.0); Mean Platelet Volume 11.6 FL (9.5-12.2); Monocytes # (A) 0.65 X 10*3/uL (0.20-1.00); Monocytes % (A) 8.9 %; NRBC Per 100 WBC 0 X 10*3/uL (0.00-0.01); Neutrophils # (A) 4.26 X 10*3/uL (1.80-7.70); Neutrophils % (A) 58.1 %; Platelet Count 271 X 10*3/uL (140-440); RDW 15.9 % (11.5-14.5); WBC 7.32 X 10*3/uL (4.50-10.00)
[2023-09-21 17:33] LABS: Chol/HDL Ratio 5.84 Ratio
[2023-09-21 17:34] LABS: ALT 15 U/L (8-44); AST 14 U/L (13-35); Albumin 4.5 g/dL (3.8-4.9); Albumin/Globulin Ratio 1.73 Ratio (1.60-3.17); Alkaline Phosphatase 129 U/L (41-126); Blood Urea Nitrogen 12.4 mg/dL (9.0-27.0); Calcium 9.6 mg/dL (8.7-10.3); Carbon Dioxide 27.5 mmol/L (21.6-31.8); Chloride 104 mmol/L (96-109); Globulin 2.6 g/dL (1.6-3.3); Glucose 134 mg/dL (70-110); LDL Cholesterol,Calculated 173.1 mg/dL (0.0-131.0); Potassium 4.7 mmol/L (3.5-5.5); Sodium 142 mmol/L (135-145); Total Bilirubin 0.3 mg/dL (0.3-1.2); Total Protein 7.1 g/dL (6.2-8.2)
== END | disposition home or self-care (01) ==
LOC: LABWHC1 08:12
PROVIDERS: ATTEND Internal Medicine Interventional Cardiology
DX: E78.2 Mixed hyperlipidemia (principal)
CPT/HCPCS: 36415; 80053; 80061; 85025

== ENCOUNTER → 2024-07-01 | Outpatient (CLI) | payer MEDICARE ==
--- NOTE | 2024-07-01 14:23 | XR ---
EXAMINATION TYPE: XR knee complete RT DATE OF EXAM: 07/01/2024 CLINICAL INDICATION: Female, 69 years old with history of M25.561 PAIN IN RIGHT KNEE. TECHNIQUE: Frontal, lateral, and oblique views of the knee were obtained. COMPARISON: None. FINDINGS: There is no acute fracture/dislocation evident in right knee. Moderate tricompartment join t space loss and spurring. The overlying soft tissue appears unremarkable. IMPRESSION: As above. [facility], , 07/01/2024 2:21 PM
== END | disposition home or self-care (01) ==
LOC: RADXRMAIN 13:55
PROVIDERS: ATTEND Family Medicine
DX: M25.561 Pain in right knee (principal); M25.761 Osteophyte, right knee

== ENCOUNTER 2024-08-05 06:10 | Day surgery (SDC) | payer MEDICARE ==
[2024-08-05 07:15] VITALS: RESP 16; TEMP 97.4
[2024-08-05] MEDS: LACTATED RINGERS 1,000 ML IV SCH (07:18)
[2024-08-05] MEDS: IV FLUID CONTINUATION 1,000 ML IV ONE (07:18)
[2024-08-05] MEDS: LIDOCAINE 1% (10MG/ML) FOR IV START INTRADERMA PRN (07:18)
[2024-08-05 07:34] LABS: Glucose,Whole Blood 91 mg/dL (70-110)
[2024-08-05] MEDS ORDERED: PROPOFOL 10 MG/ML 20 ML VIAL IV ONE (07:54)
--- NOTE | 2024-08-05 08:17 | P.PCN ---
Date of Procedure: 08/05/24 Procedure(s) Performed: BRIEF HISTORY: Patient is a 69-year-old pleasant white female scheduled for an elective colonoscopy as a part of screening for colon cancer/positive Cologuard PROCEDURE PERFORMED: Colonoscopy with snare polypectomy. PREOPERATIVE DIAGNOSIS: Screening for colon cancer/positive Cologuard. IV sedation per Anesthesia. PROCEDURE: After informed consent was obtained, the patient, was brought into the endoscopy unit. IV sedation was administered by Anesthesia under continuous monitoring. Digital rectal examination was normal. Initially the Olympus CF-160 flexible video colonoscope was then inserted in the rectum, gradually advanced into the cecum without any difficulty. Careful examination was performed as the scope was gradually being withdrawn. Ileocecal valve and the appendiceal orifice were visualized and appeared normal. Prep was excellent. Mucosa of the cecum and centimeter broad-based polyp removed by hot snare polypectomy. In the ascending colon there was an 8 mm polyp removed by hot snare polypectomy. Rest of the, ascending colon, transverse colon, descending colon, appeared normal. In the sigmoid colon there was a 1.2 cm pedunculated polyp removed by snare polypectomy. Scattered sigmoid diverticulosis seen. Rest of the sigmoid colon, and rectum appeared normal. Retroflexion was performed in the rectum and no lesions were seen. The patient tolerated the procedure well. IMPRESSION: 1 cm broad-based cecal polyp status post snare polypectomy 8 mm ascending colon polyp status post polypectomy 1.2 cm pedunculated distal sigmoid colon polyp status post polypectomy Scattered sigmoid diverticulosis RECOMMENDATIONS: Findings of this examination were discussed with the patient as well as her family. She was advised to follow-up with the biopsy results. If the biopsy reveals adenoma she can have repeat colonoscopy in 3 years..
[2024-08-05 08:35] VITALS: BP 137/75; PULSE 78
== END 2024-08-05 09:09 | disposition home or self-care (01) ==
LOC: ORWHC2ENDO 06:10
PROVIDERS: ATTEND Internal Medicine Gastroenterology
DX: D12.2 Benign neoplasm of ascending colon (principal); D12.5 Benign neoplasm of sigmoid colon; K57.30 Diverticulosis of large intestine without perforation or abscess without bleeding; R19.5 Other fecal abnormalities; I10 Essential (primary) hypertension; E78.5 Hyperlipidemia, unspecified; E11.9 Type 2 diabetes mellitus without complications; F32.A Depression, unspecified; K21.9 Gastro-esophageal reflux disease without esophagitis; F17.210 Nicotine dependence, cigarettes, uncomplicated; Z79.84 Long term (current) use of oral hypoglycemic drugs; Z79.899 Other long term (current) drug therapy
CPT/HCPCS: 88305; 45385; J2704

== ENCOUNTER → 2024-08-31 | Outpatient (CLI) | payer MEDICARE ==
--- NOTE | 2024-08-31 15:20 | MM ---
Reason for Exam: Screening (asymptomatic). Patient History: Menarche at age 13. First Full-Term at age 25. Postmenopausal. Risk Values: Marni 5 year model risk: 1.7%. NCI Lifetime model risk: 5.7%. Prior Study Comparison: No prior studies available for comparison. Tissue Density: There are scattered areas of fibroglandular density. Findings: Analyzed By CAD. There is a circumscribed 5 mm round lesion in the posterior left breast upper-outer quadrant. There is indeterminate small group of calcifications in the central right breast. Overall Assessment: Incomplete: need additional imaging evaluation, BI-RAD 0 Management: Diagnostic Breast Ultrasound of the left breast. Diagnostic Mammogram of the right breast. Return for additional views right breast including spot magnification and 3-D true lateral views. Return for targeted ultrasound left breast Patient should continue monthly self-breast exams. A clinical breast exam by your physician is recommended on an annual basis. This exam should not preclude additional follow-up of suspicious palpable abnormalities. Note on Marni scores and lifetime risk: 1. A Marni score greater than 3% is considered moderate risk. If this is the case, consider specialist referral to assess eligibility for a risk reducing agent. 2. If overall lifetime risk for the development of breast cancer is 20% or higher, the patient may qualify for future screening with alternating mammogram and breast MRI. [facility], , 08/31/2024 3:16 PM. Electronically signed and approved by: Yovani Antunez M.D.
== END | disposition home or self-care (01) ==
LOC: RADMAMWWP 14:26
PROVIDERS: ATTEND Family Medicine
DX: Z12.31 Encounter for screening mammogram for malignant neoplasm of breast (principal); R92.323 Mammographic fibroglandular density, bilateral breasts; Z78.0 Asymptomatic menopausal state
CPT/HCPCS: 77063; 77067

== ENCOUNTER → 2024-09-06 | Outpatient (CLI) | payer MEDICARE ==
--- NOTE | 2024-09-06 15:17 | MM ---
Reason for Exam: Additional evaluation requested from abnormal screening. Last screening mammogram was performed less than 1 month ago. Patient History: Menarche at age 13. First Full-Term at age 25. Postmenopausal. Patient used Hormonal Contraceptives for 3 years. Risk Values: Marni 5 year model risk: 1.7%. NCI Lifetime model risk: 5.7%. Prior Study Comparison: 08/31/2024 Bilateral MG 3D screening mammo w/cad, [facility]. Tissue Density: Right: The breasts are heterogeneously dense, which may obscure small masses. Findings: Analyzed By CAD. There are heterogenous indeterminate microcalcifications at the approximate 11:00 position right breast 4.3 cm from the nipple. Tissue diagnosis is recommended. Overall Assessment: Suspicious, BI-RAD 4 Management: Stereotactic Core Biopsy of the right breast. . Results were given to the patient verbally at the time of exam. Patient should continue monthly self-breast exams. A clinical breast exam by your physician is recommended on an annual basis. This exam should not preclude additional follow-up of suspicious palpable abnormalities. Note on Marni scores and lifetime risk: 1. A Marni score greater than 3% is considered moderate risk. If this is the case, consider specialist referral to assess eligibility for a risk reducing agent. 2. If overall lifetime risk for the development of breast cancer is 20% or higher, the patient may qualify for future screening with alternating mammogram and breast MRI. [facility], , 09/06/2024 3:14 PM. Electronically signed and approved by: Scot Ascencio M.D. Radiologis
--- NOTE | 2024-09-07 07:23 | USB ---
Reason for Exam: Additional evaluation requested from prior study. Patient History: Menarche at age 13. First Full-Term at age 25. Postmenopausal. Patient used Hormonal Contraceptives for 3 years. Risk Values: Marni 5 year model risk: 1.7%. NCI Lifetime model risk: 5.7%. Technique: Method: Targeted. Prior Study Comparison: 08/31/2024 Bilateral MG 3D screening mammo w/cad, [facility]. Findings: The lower section of the breast of the left breast, the axilla of the left breast and the retroareolar of the left breast were scanned. Hypoechoic lesion at the left 2:00 position 7 cm from the nipple measuring 5 mm is likely reflective of a small intramammary lymph node. Six-month follow-up recommended.. Overall Assessment: Probably benign, BI-RAD 3 Management: Diagnostic Breast Ultrasound of the left breast in 6 months. A clinical breast exam by your physician is recommended on an annual basis and results should be correlated with mammographic findings. This exam should not preclude additional follow-up of suspicious palpable abnormalities. Results were given to the patient verbally at the time of exam. [facility], , 09/06/2024 3:32 PM. Electronically signed and approved by: Scot Ascencio M.D. Radiologis
== END | disposition home or self-care (01) ==
LOC: RADMAMWWP 14:35
PROVIDERS: ATTEND Family Medicine
DX: R92.8 Other abnormal and inconclusive findings on diagnostic imaging of breast (principal); R92.331 Mammographic heterogeneous density, right breast; Z78.0 Asymptomatic menopausal state; Z92.0 Personal history of contraception; N64.89 Other specified disorders of breast
CPT/HCPCS: 77061; 77065